=== PATIENT | male | born 1940 | race Caucasian/White ===

== ENCOUNTER 2021-08-22 20:58 | Observation (INO) ==
[2021-08-22] MEDS ORDERED: Isovue-370 500 ML BOTTLE IVP ONE (21:51)
[2021-08-22] MEDS ORDERED: 0.9 % Sodium Chloride 1,000 ML IVC SCH (22:00)
[2021-08-22 22:58] LABS: Basophils # 0.1 K/mcL (0.0-0.2); Basophils % 0.6 %; Eosinophils # 0.4 K/mcL (0.0-0.6); Eosinophils % 4.2 %; Hematocrit 40.1 % (37.5-50.1); Hemoglobin 13.2 g/dL (12.9-16.9); Immature Granulocytes % 0.2 % (0-4); Lymphocytes # 2.9 K/mcL (0.6-4.6); Lymphocytes % 33.9 %; Mean Corpuscular HGB Conc 32.9 g/dL (31.6-35.5); Mean Corpuscular Hemoglobin 31.7 pg (28.0-33.3); Mean Corpuscular Volume 96.4 fL (83.0-100.0); Mean Platelet Volume 9.1 fL (9.4-12.4); Monocytes % 11.3 %; Neutrophils # 4.3 K/mcL (1.6-8.9); Platelet Count 196 K/mcL (140-400); Red Blood Count 4.16 M/mcL (4.19-5.50); Red Cell Distribution Width 14.7 % (11.5-14.5); Segmented Neutrophils % 49.8 %; White Blood Count 8.6 K/mcL (4.3-11.1)
[2021-08-22 23:11] LABS: INR 1.5; Prothrombin Time 16.3 Seconds (9.4-12.1)
[2021-08-22 23:12] LABS: D-Dimer < 215 ng/mLFEU (0-500)
[2021-08-22 23:13] LABS: Activated Partial Thrombo Time 44.3 Seconds (26.0-36.0)
[2021-08-22 23:23] LABS: Alanine Aminotransferase 16 Units/L (7-52); Albumin 3.6 g/dL (3.5-5.7); Albumin/Globulin Ratio 1.4 (1.1-2.2); Alkaline Phosphatase 40 Units/L (34-104); Aspartate Amino Transferase 15 Units/L (13-39); BUN/Creatinine Ratio 20 (6-26); Bilirubin,Direct 0.2 mg/dL (0.0-0.2); Bilirubin,Indirect 0.2 mg/dL (0.0-1.0); Bilirubin,Total 0.4 mg/dL (0.3-1.0); Blood Urea Nitrogen 26 mg/dL (8-23); Calcium 9.7 mg/dL (8.6-10.3); Carbon Dioxide 27 mEq/L (23-29); Chloride 101 mEq/L (98-107); Globulin 2.6 g/dL (2.4-3.5); Glucose 146 mg/dL (70-105); Lipase 11 Units/L (11-82); Osmolality,Calculated 293 (280-300); Potassium 3.7 mEq/L (3.5-5.1); Sodium 138 mEq/L (136-145); Total Protein 6.2 g/dL (6.4-8.9); Troponin I < 0.03 ng/mL (< 0.04); eGFR For African Americans > 60 (> 60); eGFR For Non-African Americans 53 (> 60)
[2021-08-23] MEDS ORDERED: Aspirin 81 MG TAB.CHEW PO STA (01:22)
[2021-08-23] MEDS ORDERED: Naloxone 0.4 MG/ML INJ IVP PRN (02:55)
[2021-08-23] MEDS ORDERED: Ondansetron 4 MG/2 ML VIAL IVP PRN (02:55)
[2021-08-23] MEDS ORDERED: Acetaminophen 325 MG TABLET PO PRN (02:55)
[2021-08-23] MEDS ORDERED: Perflutren Lipid Microsphere 1.3 ML in 0.9 % Sodium Chloride 8.7 ML IVP PRN ×2 (02:58→19:24)
[2021-08-23] MEDS ORDERED: 0.9 % Sodium Chloride 1,000 ML IVC SCH (03:45)
[2021-08-23 06:05] LABS: Basophils % 0.5 %; Eosinophils # 0.3 K/mcL (0.0-0.6); Eosinophils % 4.3 %; Hematocrit 40.9 % (37.5-50.1); Hemoglobin 13.4 g/dL (12.9-16.9); Immature Granulocytes % 0.3 % (0-4); Lymphocytes # 2.5 K/mcL (0.6-4.6); Lymphocytes % 31.7 %; Mean Corpuscular HGB Conc 32.8 g/dL (31.6-35.5); Mean Corpuscular Hemoglobin 31.8 pg (28.0-33.3); Mean Corpuscular Volume 96.9 fL (83.0-100.0); Mean Platelet Volume 9.3 fL (9.4-12.4); Monocytes # 0.9 K/mcL (0.0-1.3); Monocytes % 11.7 %; Neutrophils # 4.1 K/mcL (1.6-8.9); Platelet Count 195 K/mcL (140-400); Red Blood Count 4.22 M/mcL (4.19-5.50); Red Cell Distribution Width 14.6 % (11.5-14.5); Segmented Neutrophils % 51.5 %; White Blood Count 7.9 K/mcL (4.3-11.1)
[2021-08-23 06:22] LABS: BUN/Creatinine Ratio 22 (6-26); Blood Urea Nitrogen 23 mg/dL (8-23); Calcium 9.5 mg/dL (8.6-10.3); Carbon Dioxide 33 mEq/L (23-29); Chloride 102 mEq/L (98-107); Cholesterol 122 mg/dL (< 200); Glucose 127 mg/dL (70-105); HDL Cholesterol 41 mg/dL (40-59); LDL Cholesterol,Calculated 63 mg/dL (< 100); Magnesium 1.5 mg/dL (1.6-2.6); Osmolality,Calculated 295 (280-300); Potassium 3.7 mEq/L (3.5-5.1); Sodium 140 mEq/L (136-145); Triglycerides 90 mg/dL (< 150); Troponin I < 0.03 ng/mL (< 0.04); eGFR For African Americans > 60 (> 60); eGFR For Non-African Americans > 60 (> 60)
[2021-08-23] MEDS ORDERED: Regadenoson 0.4 MG/5 ML SYRINGE IVP ONE (06:28)
[2021-08-23 06:36] LABS: Thyroid Stimulating Hormone 7.143 mcIU/mL (0.340-5.600)
[2021-08-23 09:11] LABS: Estimated Average Glucose 200 mg/dl; Hemoglobin A1C 8.6 %
[2021-08-23 10:04] LABS: Triiodothyronine (T3) Free 2.61 pg/mL (2.50-3.90)
[2021-08-23] MEDS: Apixaban 5 MG TABLET PO SCH (19:58)
[2021-08-24] MEDS: Ranolazine 500 MG TAB.ER.12H PO SCH ×2 (10:19→19:41)
[2021-08-24] MEDS: Aspirin Enteric Coated 81 MG Tablet PO SCH (10:19)
[2021-08-24] MEDS: Furosemide 40 MG TABLET PO SCH ×2 (10:19→18:02)
[2021-08-24] MEDS: Apixaban 5 MG TABLET PO SCH ×2 (10:20→19:39)
[2021-08-24] MEDS: Isosorbide MONOnitrate (24 HR) 30 MG TAB.ER.24H PO SCH (10:20)
[2021-08-24] MEDS: *HR* Amiodarone 200 MG TABLET PO SCH (10:21)
[2021-08-24] MEDS: Metoprolol XL (24 HR) Succ 25 MG TAB.ER.24H PO SCH (10:21)
[2021-08-24] MEDS ORDERED: D5% in Water 1,000 ML IVC PRN (17:20)
[2021-08-24] MEDS ORDERED: Dextrose Gel 15 GM/37.5 ML TUBE PO PRN ×2 (17:20)
[2021-08-24] MEDS ORDERED: *HR* Dextrose 50 % in Water (Syg) 50 ML SYRINGE IVP PRN (17:20)
[2021-08-25] MEDS: Aspirin Enteric Coated 81 MG Tablet PO SCH (09:46)
[2021-08-25] MEDS: *HR* Amiodarone 200 MG TABLET PO SCH (09:47)
[2021-08-25] MEDS: Furosemide 40 MG TABLET PO SCH (09:47)
[2021-08-25] MEDS: Isosorbide MONOnitrate (24 HR) 30 MG TAB.ER.24H PO SCH (09:47)
[2021-08-25] MEDS: Ranolazine 500 MG TAB.ER.12H PO SCH (09:47)
[2021-08-25] MEDS: Metoprolol XL (24 HR) Succ 25 MG TAB.ER.24H PO SCH (09:47)
[2021-08-25] MEDS: Apixaban 5 MG TABLET PO SCH (09:47)
[2021-08-25] MEDS: Insulin LISPRO 300 UNITS/3 ML VIAL SUBQ SCH ×2 (09:50→12:08)
[2021-08-25 11:07] VITALS: BP 113/62; PULSE 72; TEMP 97.5; O2SAT 94
== END 2021-08-25 16:24 | disposition home or self-care (01) ==
LOC: EMEROOARM 20:58 → 3BNU 20:58 → SUATTDRO 08-23 02:55 → 3BNU 08-23 11:53
PROVIDERS: ADMIT Family Medicine; ATTEND Internal Medicine